=== PATIENT | female | born 1985 | race Hispanic/Latino ===

== ENCOUNTER 2022-12-20 13:07 | Emergency (ER) | payer OTHER ==
[2022-12-20] MEDS ORDERED: Ketorolac Tromethamine 30 MG/ML VIAL ONE (15:13)
[2022-12-20] MEDS ORDERED: predniSONE 20 MG TAB ONE (15:13)
[2022-12-20] MEDS ORDERED: Diazepam 5 MG TAB ONE (15:13)
== END 2022-12-20 16:25 | disposition home or self-care (01) ==
LOC: CSHERS 13:07
DX: G89.29 Other chronic pain (principal); M54.6 Pain in thoracic spine; S22.079D Unspecified fracture of T9-T10 vertebra, subsequent encounter for fracture with routine healing
CPT/HCPCS: 72128; 72131; 96372; J1885; J7512

== ENCOUNTER 2023-01-16 18:05 | Emergency (ER) | payer OTHER | END 2023-01-16 19:42 | disposition home or self-care (01) | LOC: CSHERS 18:05 | DX: S70.11XA Contusion of right thigh, initial encounter (principal); M79.642 Pain in left hand; M25.561 Pain in right knee; W19.XXXA Unspecified fall, initial encounter ==

== ENCOUNTER 2023-02-22 15:24 | Emergency (ER) | payer OTHER, SELFPAY | END 2023-02-22 16:19 | disposition home or self-care (01) | LOC: CSHERS 15:24 | DX: R42 Dizziness and giddiness (principal) | CPT/HCPCS: 99283 ==

== ENCOUNTER 2024-01-29 12:15 | Emergency (ER) | payer OTHER | END 2024-01-29 13:16 | disposition home or self-care (01) | LOC: CSHERS 12:15 | DX: J02.9 Acute pharyngitis, unspecified (principal); R05.9 Cough, unspecified | CPT/HCPCS: 99283 ==

== ENCOUNTER 2024-10-05 08:22 | Outpatient (CLI) | payer OTHER | END 2024-10-05 08:23 | disposition home or self-care (01) | LOC: CSHWCC 08:22 | PROVIDERS: ATTEND Nurse Practitioner Family | DX: L97.111 Non-pressure chronic ulcer of right thigh limited to breakdown of skin (principal) | CPT/HCPCS: 97605 ==

== ENCOUNTER 2024-10-30 15:21 | Outpatient (CLI) | payer OTHER | END 2024-10-30 15:22 | disposition home or self-care (01) | LOC: CSHWCC 15:21 | PROVIDERS: ATTEND Nurse Practitioner Family | DX: L97.111 Non-pressure chronic ulcer of right thigh limited to breakdown of skin (principal) | CPT/HCPCS: 11042; 97605; 99212; G0463 ==

== ENCOUNTER 2024-11-06 16:07 | Outpatient (CLI) | payer OTHER | END 2024-11-06 16:08 | disposition home or self-care (01) | LOC: CSHWCC 16:07 | PROVIDERS: ATTEND Nurse Practitioner Family | DX: L97.111 Non-pressure chronic ulcer of right thigh limited to breakdown of skin (principal); L08.9 Local infection of the skin and subcutaneous tissue, unspecified | CPT/HCPCS: 11042; 97605 ==

== ENCOUNTER 2024-11-09 08:00 | Outpatient (CLI) | payer OTHER | END 2024-11-09 08:01 | disposition home or self-care (01) | LOC: CSHWCC 08:00 | PROVIDERS: ATTEND Nurse Practitioner Family | DX: L97.111 Non-pressure chronic ulcer of right thigh limited to breakdown of skin (principal); L08.9 Local infection of the skin and subcutaneous tissue, unspecified | CPT/HCPCS: 97605 ==

== ENCOUNTER 2024-11-13 15:57 | Outpatient (CLI) | payer OTHER | END 2024-11-13 15:58 | disposition home or self-care (01) | LOC: CSHWCC 15:57 | PROVIDERS: ATTEND Nurse Practitioner Family | DX: L97.111 Non-pressure chronic ulcer of right thigh limited to breakdown of skin (principal) | CPT/HCPCS: 11042; 97605 ==

== ENCOUNTER 2024-11-18 15:16 | Emergency (ER) | payer OTHER ==
[2024-11-18] MEDS ORDERED: Ketorolac Tromethamine 30 MG (1 mL) VIAL ONE (15:59)
== END 2024-11-18 16:49 | disposition home or self-care (01) ==
LOC: CSHERS 15:16
DX: S76.012A Strain of muscle, fascia and tendon of left hip, initial encounter (principal); E66.9 Obesity, unspecified; X58.XXXA Exposure to other specified factors, initial encounter
CPT/HCPCS: 96372; 99283; J1885

== ENCOUNTER 2024-11-20 16:14 | Outpatient (CLI) | payer OTHER | END 2024-11-20 16:15 | disposition home or self-care (01) | LOC: CSHWCC 16:14 | PROVIDERS: ATTEND Nurse Practitioner Family | DX: L97.111 Non-pressure chronic ulcer of right thigh limited to breakdown of skin (principal) | CPT/HCPCS: 11042 ==

== ENCOUNTER 2024-11-27 15:25 | Outpatient (CLI) | payer OTHER | END 2024-11-27 15:26 | disposition home or self-care (01) | LOC: CSHWCC 15:25 | PROVIDERS: ATTEND Nurse Practitioner Family | DX: L97.111 Non-pressure chronic ulcer of right thigh limited to breakdown of skin (principal) | CPT/HCPCS: 11042 ==

== ENCOUNTER 2024-12-04 15:16 | Outpatient (CLI) | payer OTHER | END 2024-12-04 15:17 | disposition home or self-care (01) | LOC: CSHWCC 15:16 | PROVIDERS: ATTEND Nurse Practitioner Family | DX: L97.111 Non-pressure chronic ulcer of right thigh limited to breakdown of skin (principal) | CPT/HCPCS: 11042 ==

== ENCOUNTER 2024-12-19 15:21 | Outpatient (CLI) | payer OTHER | END 2024-12-19 15:22 | disposition home or self-care (01) | LOC: CSHWCC 15:21 | PROVIDERS: ATTEND Nurse Practitioner Family | DX: L97.111 Non-pressure chronic ulcer of right thigh limited to breakdown of skin (principal) | CPT/HCPCS: 11042 ==

== ENCOUNTER 2025-01-01 15:03 | Outpatient (CLI) | payer OTHER | END 2025-01-01 15:04 | disposition home or self-care (01) | LOC: CSHWCC 15:03 | PROVIDERS: ATTEND Nurse Practitioner Family | DX: L97.111 Non-pressure chronic ulcer of right thigh limited to breakdown of skin (principal) | CPT/HCPCS: 11042 ==

== ENCOUNTER 2025-02-01 20:53 | Emergency (ER) | payer OTHER ==
[2025-02-01] MEDS ORDERED: predniSONE 20 MG TAB ONE (21:28)
== END 2025-02-01 22:26 | disposition home or self-care (01) ==
LOC: CSHERS 20:53
DX: T78.2XXA Anaphylactic shock, unspecified, initial encounter (principal)
CPT/HCPCS: 96372; 99283; J0169; J7512